=== PATIENT | male | born 1990 | race Caucasian/White ===

== ENCOUNTER 2020-12-23 21:57 | Inpatient (IN) | payer OTHER ==
[2020-12-23 23:23] LABS: VENOUS O2 SATURATION 99.1 % (70-80); VENOUS PCO2 33.6 mmHg (38-52); VENOUS PH 7.439 (7.310-7.410)
[2020-12-23 23:24] LABS: BASO % 0.8 % (0-2.0); EOS % 0.3 % (0-4.5); HEMATOCRIT 47.7 % (35.4-49); HEMOGLOBIN 16.2 GM/dL (11.7-16.9); LYMPH % 36.5 % (8-40); MCH 31.9 pg (25.7-33.7); MCHC 33.9 g/dl (32.0-35.9); MEAN CELL VOLUME 94.1 fl (80-96); MEAN PLT VOLUME 8.5 fl (7.5-11.1); MONO % 5.3 % (3.8-10.2); NEUT % 57.1 % (42.8-82.8); PLATELET COUNT 189 K/MM3 (134-434); RBC 5.07 M/mm3 (4.00-5.60); RDW 15.5 % (11.9-15.9); WHITE BLOOD COUNT 6.7 K/mm3 (4.0-10.0)
[2020-12-23 23:55] LABS: ALBUMIN 4.4 g/dl (3.4-5.0); CALCIUM 8.2 mg/dL (8.5-10.1)
[2020-12-23 23:58] LABS: CREATININE 0.8 mg/dL (0.55-1.3)
[2020-12-23 23:59] LABS: BILIRUBIN,TOTAL 0.9 mg/dL (0.2-1); TOT PROT 8.3 g/dl (6.4-8.2)
[2020-12-24] MEDS ORDERED: chlordiazePOXIDE HCL 25 MG CAPSULE PO ONE (00:20)
[2020-12-24] MEDS ORDERED: chlordiazePOXIDE HCL 25 MG CAPSULE ONE (00:24)
[2020-12-24 01:19] LABS: URINE AMPHETAMINES NEGATIVE ng/ml (CUTOFF=500); URINE BARBITURATES NEGATIVE ng/ml (CUTOFF=200); URINE BENZODIAZEPINES NEGATIVE ng/ml (CUTOFF=200)
[2020-12-24 01:20] LABS: COCAINE, UR NEGATIVE ng/ml (CUTOFF=300); METHADONE, UR NEGATIVE ng/ml (CUTOFF=300); OPIATES, URI NEGATIVE ng/ml (CUTOFF=300); PHENCYCLIDINE,URINE NEGATIVE ng/ml (CUTOFF=25)
[2020-12-24] MEDS ORDERED: FOLIC ACID INJECTION - 1 MG, THIAMINE HCL 100 MG, MULTIVIT INJECTION ADULT 10 ML in SOD... IVPB ONE (02:39)
[2020-12-24] MEDS: chlordiazePOXIDE HCL 25 MG CAPSULE PO PRN ×2 (05:40→15:37)
[2020-12-24 06:44] VITALS: BMI 28.6
[2020-12-24 06:45] LABS: HEMATOCRIT 42.6 % (35.4-49); HEMOGLOBIN 14.9 GM/dL (11.7-16.9); MCH 32.6 pg (25.7-33.7); MEAN CELL VOLUME 93.2 fl (80-96); PLATELET COUNT 158 K/MM3 (134-434); RBC 4.57 M/mm3 (4.00-5.60); RDW 14.7 % (11.9-15.9); WHITE BLOOD COUNT 5.1 K/mm3 (4.0-10.0)
[2020-12-24 07:41] LABS: CALCIUM 8.2 mg/dL (8.5-10.1)
[2020-12-24 07:42] LABS: ALBUMIN 3.9 g/dl (3.4-5.0); BLOOD UREA NITROGEN 10.5 mg/dL (7-18)
[2020-12-24 07:45] LABS: CREATININE 0.8 mg/dL (0.55-1.3); PHOSPHOROUS 3.4 mg/dL (2.5-4.9)
[2020-12-24 07:46] LABS: BILIRUBIN,TOTAL 1.3 mg/dL (0.2-1)
[2020-12-24 07:47] LABS: TOT PROT 7.5 g/dl (6.4-8.2)
[2020-12-24] MEDS ORDERED: PT OWN MED DRAWER 7, Y5N ONE (10:52)
[2020-12-24] MEDS: THIAMINE HCL 100 MG TABLET (FP) PO SCH (10:57)
[2020-12-24] MEDS: ENOXAPARIN NA (PORCINE) 40 MG/0.4 ML DISP.SYRIN SQ SCH (10:57)
[2020-12-24] MEDS: chlordiazePOXIDE HCL 25 MG CAPSULE PO SCH ×3 (10:57→22:00)
[2020-12-24] MEDS: FOLIC ACID 1 MG TABLET (FP) PO SCH (10:57)
[2020-12-24] MEDS: TETRAHYDROZOLINE HCL EYE DROPS OU SCH ×2 (12:04→22:00)
[2020-12-24] MEDS ORDERED: FLU VACCINE (FLULAVAL) PF 60 MCG/0.5 ML SYRINGE 2020-2021 IM ONE (16:00)
[2020-12-25] MEDS: chlordiazePOXIDE HCL 25 MG CAPSULE PO PRN (03:01)
[2020-12-25] MEDS: chlordiazePOXIDE HCL 25 MG CAPSULE PO SCH ×2 (06:03→11:02)
[2020-12-25 07:18] LABS: EOS % 1.5 % (0-4.5); HEMATOCRIT 39.5 % (35.4-49); HEMOGLOBIN 13.8 GM/dL (11.7-16.9); MCH 32.8 pg (25.7-33.7); MEAN CELL VOLUME 93.8 fl (80-96); MEAN PLT VOLUME 8.5 fl (7.5-11.1); MONO % 7.6 % (3.8-10.2); NEUT % 64.9 % (42.8-82.8); PLATELET COUNT 107 K/MM3 (134-434); RBC 4.22 M/mm3 (4.00-5.60); RDW 15.2 % (11.9-15.9); WHITE BLOOD COUNT 3.6 K/mm3 (4.0-10.0)
[2020-12-25 07:44] LABS: CALCIUM 8.8 mg/dL (8.5-10.1)
[2020-12-25 07:45] LABS: ALBUMIN 3.6 g/dl (3.4-5.0); BLOOD UREA NITROGEN 11.7 mg/dL (7-18); MAGNESIUM 1.9 mg/dL (1.8-2.4)
[2020-12-25 07:48] LABS: CREATININE 0.7 mg/dL (0.55-1.3)
[2020-12-25 07:50] LABS: BILIRUBIN,TOTAL 1.6 mg/dL (0.2-1); TOT PROT 6.7 g/dl (6.4-8.2)
[2020-12-25 09:30] VITALS: BP 114/71; PULSE 69; TEMP 97.8
[2020-12-25] MEDS: ENOXAPARIN NA (PORCINE) 40 MG/0.4 ML DISP.SYRIN SQ SCH (09:50)
[2020-12-25] MEDS: THIAMINE HCL 100 MG TABLET (FP) PO SCH (09:50)
[2020-12-25] MEDS: FOLIC ACID 1 MG TABLET (FP) PO SCH (09:50)
[2020-12-25] MEDS: TETRAHYDROZOLINE HCL EYE DROPS OU SCH (09:50)
[2020-12-26] MEDS ORDERED: chlordiazePOXIDE HCL 25 MG CAPSULE PO SCH (05:00)
[2020-12-27] MEDS ORDERED: chlordiazePOXIDE HCL 10 MG CAPSULE PO PRN
[2020-12-27] MEDS ORDERED: chlordiazePOXIDE HCL 10 MG CAPSULE PO SCH (05:00)
[2020-12-28] MEDS ORDERED: chlordiazePOXIDE HCL 10 MG CAPSULE PO SCH (05:00)
[2020-12-29] MEDS ORDERED: chlordiazePOXIDE HCL 10 MG CAPSULE PO ONE (05:00)
== END 2020-12-25 13:39 | disposition other institution (70) | DRG 775 ==
LOC: JER 21:57 → JERBED 12-24 01:45 → J4S 12-24 05:01
PROVIDERS: ADMIT Internal Medicine; ATTEND Nurse Practitioner Family
PROC: HZ2ZZZZ Detoxification Services for Substance Abuse Treatment (ICD-10-PCS; principal; 2020-12-24)
DX: F10.239 Alcohol dependence with withdrawal, unspecified (principal); R45.851 Suicidal ideations; F10.220 Alcohol dependence with intoxication, uncomplicated
CPT/HCPCS: 36415; 70450-TC; 71045-TC-FY; 73630-TC-LT; 73630-TC-RT-FY; 80053; 80307; 82803; 83036; 83690; 83735; 84100; 84443; 85025; 85027; 93005; 93010; 97116-GP; 97161-GP; 99285-25; C9803; G0008; G0397; Q2036; U0003; U0005

== ENCOUNTER 2020-12-25 13:29 | Inpatient (IN) | payer SELFPAY ==
[2020-12-25] MEDS ORDERED: ONDANSETRON *ODT* 4 MG TABLET SL PRN (14:28)
[2020-12-25] MEDS ORDERED: MAG HYDROX/AL HYDROX/SIMETH 30 ML UNIT-DOSE CUP PO PRN (14:28)
[2020-12-25] MEDS ORDERED: BISMUTH SUBSALICYLATE 524 MG/30 ML UD PO PRN (14:28)
[2020-12-25] MEDS ORDERED: MENTHOL/PHENOL 1 EACH UD MM PRN (14:28)
[2020-12-25] MEDS ORDERED: NICOTINE POLACRILEX 2 MG GUM BUC PRN (14:28)
[2020-12-25] MEDS ORDERED: MAGNESIUM CITRATE 300 ML BOTTLE PO PRN (14:28)
[2020-12-25] MEDS ORDERED: ACETAMINOPHEN 325 MG TABLET (FP) PO PRN ×2 (14:28)
[2020-12-25] MEDS ORDERED: IBUPROFEN 400 MG TABLET (FP) PO PRN (14:28)
[2020-12-25] MEDS ORDERED: MAGNESIUM HYDROX 2400MG/30ML ORAL SUSPENSION 30 ML CUP PO PRN (14:28)
[2020-12-25] MEDS ORDERED: chlordiazePOXIDE HCL 25 MG CAPSULE PO PRN (14:28)
[2020-12-25] MEDS ORDERED: METHOCARBAMOL 500 MG TABLET PO PRN (14:28)
[2020-12-25 14:29] VITALS: BMI 29.9
[2020-12-25] MEDS ORDERED: chlordiazePOXIDE HCL 25 MG CAPSULE ONE (15:51)
[2020-12-25] MEDS: chlordiazePOXIDE HCL 25 MG CAPSULE PO SCH ×2 (16:02→22:48)
[2020-12-25] MEDS: hydrOXYzine PAMOATE 25 MG CAPSULE (FP) PO SCH ×2 (17:49→22:49)
[2020-12-25] MEDS: PRENATAL VITAMINS W/ FOLIC ACID TABLET (FP) PO SCH (17:49)
[2020-12-25] MEDS: THIAMINE HCL 100 MG TABLET (FP) PO SCH (22:48)
[2020-12-25] MEDS: MELATONIN 5 MG TABLETS PO SCH (22:49)
[2020-12-26] MEDS: hydrOXYzine PAMOATE 25 MG CAPSULE (FP) PO SCH ×5 (06:19→22:59)
[2020-12-26] MEDS: chlordiazePOXIDE HCL 25 MG CAPSULE PO SCH ×4 (06:20→22:59)
[2020-12-26] MEDS: PRENATAL VITAMINS W/ FOLIC ACID TABLET (FP) PO SCH (10:24)
[2020-12-26 11:29] LABS: HEMOGLOBIN 14.9 GM/dL (11.7-16.9); MCH 32.5 pg (25.7-33.7); MCHC 34.7 g/dl (32.0-35.9); MEAN CELL VOLUME 93.8 fl (80-96); MEAN PLT VOLUME 9.3 fl (7.5-11.1); PLATELET COUNT 120 K/MM3 (134-434); RBC 4.58 M/mm3 (4.00-5.60)
[2020-12-26 11:33] LABS: CALCIUM 9.6 mg/dL (8.5-10.1)
[2020-12-26 11:34] LABS: ALBUMIN 4.1 g/dl (3.4-5.0); BLOOD UREA NITROGEN 10.8 mg/dL (7-18)
[2020-12-26 11:37] LABS: CREATININE 0.9 mg/dL (0.55-1.3)
[2020-12-26 11:39] LABS: BILIRUBIN,TOTAL 1.6 mg/dL (0.2-1); TOT PROT 7.8 g/dl (6.4-8.2)
[2020-12-26 12:32] LABS: HIV INTERPRETATION NEGATIVE (NEGATIVE)
[2020-12-26] MEDS: MELATONIN 5 MG TABLETS PO SCH (22:58)
[2020-12-26] MEDS: THIAMINE HCL 100 MG TABLET (FP) PO SCH (22:58)
[2020-12-27] MEDS: hydrOXYzine PAMOATE 25 MG CAPSULE (FP) PO SCH ×5 (05:19→22:53)
[2020-12-27] MEDS: chlordiazePOXIDE HCL 10 MG CAPSULE PO SCH ×4 (05:19→22:53)
[2020-12-27] MEDS: PRENATAL VITAMINS W/ FOLIC ACID TABLET (FP) PO SCH (10:39)
[2020-12-27 12:27] LABS: CALCIUM 8.9 mg/dL (8.5-10.1)
[2020-12-27 12:28] LABS: ALBUMIN 3.5 g/dl (3.4-5.0); BLOOD UREA NITROGEN 12.5 mg/dL (7-18)
[2020-12-27 12:31] LABS: CREATININE 0.7 mg/dL (0.55-1.3)
[2020-12-27 12:33] LABS: BILIRUBIN,TOTAL 0.8 mg/dL (0.2-1); TOT PROT 6.8 g/dl (6.4-8.2)
[2020-12-27] MEDS: THIAMINE HCL 100 MG TABLET (FP) PO SCH (22:53)
[2020-12-27] MEDS: MELATONIN 5 MG TABLETS PO SCH (22:53)
[2020-12-28] MEDS ORDERED: chlordiazePOXIDE HCL 10 MG CAPSULE PO PRN
[2020-12-28] MEDS ORDERED: chlordiazePOXIDE HCL 10 MG CAPSULE PO SCH (05:00)
[2020-12-28] MEDS: hydrOXYzine PAMOATE 25 MG CAPSULE (FP) PO SCH ×5 (06:00→22:14)
[2020-12-28] MEDS: PRENATAL VITAMINS W/ FOLIC ACID TABLET (FP) PO SCH (10:33)
[2020-12-28 14:07] LABS: SARS-CoV-2 NAA Not Detected (Not Detected)
[2020-12-28] MEDS ORDERED: LORazepam 0.5 MG TABLET PO ONE (21:00)
[2020-12-28] MEDS: THIAMINE HCL 100 MG TABLET (FP) PO SCH (22:14)
[2020-12-28] MEDS: MELATONIN 5 MG TABLETS PO SCH (22:14)
[2020-12-29] MEDS ORDERED: chlordiazePOXIDE HCL 10 MG CAPSULE PO ONE (05:00)
[2020-12-29] MEDS ORDERED: LORazepam 0.5 MG TABLET PO ONE (05:00)
[2020-12-29] MEDS: hydrOXYzine PAMOATE 25 MG CAPSULE (FP) PO SCH (05:48)
[2020-12-29 08:35] VITALS: BP 100/57; PULSE 57; TEMP 98.6
== END 2020-12-29 09:33 | disposition home or self-care (01) | DRG 775 ==
LOC: YASAS 13:29 → Y6N 15:29
PROVIDERS: ADMIT Allergy & Immunology; ATTEND Allergy & Immunology
PROC: HZ2ZZZZ Detoxification Services for Substance Abuse Treatment (ICD-10-PCS; principal; 2020-12-25)
DX: F10.230 Alcohol dependence with withdrawal, uncomplicated (principal); F19.24 Other psychoactive substance dependence with psychoactive substance-induced mood disorder; D69.6 Thrombocytopenia, unspecified; B35.1 Tinea unguium; R74.01 Elevation of levels of liver transaminase levels; R76.11 Nonspecific reaction to tuberculin skin test without active tuberculosis; Z86.69 Personal history of other diseases of the nervous system and sense organs
CPT/HCPCS: 36415; 80053; 85027; 86780; 87389; 93005; 93010; C9803; U0003; U0005